=== PATIENT | male | born 1985 | race American Indian/Alaskan Native ===

== ENCOUNTER 2016-12-28 14:05 | Emergency (ER) | payer OTHER ==
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
[2016-12-28 19:03] VITALS: BP 114/75
== END 2016-12-28 18:30 | disposition home or self-care (01) ==
LOC: ED 14:05
DX: S46.811A Strain of other muscles, fascia and tendons at shoulder and upper arm level, right arm, initial encounter (principal); J45.909 Unspecified asthma, uncomplicated; V89.2XXA Person injured in unspecified motor-vehicle accident, traffic, initial encounter; Y93.89 Activity, other specified; Y99.9 Unspecified external cause status; Y92.410 Unspecified street and highway as the place of occurrence of the external cause
CPT/HCPCS: 99282

== ENCOUNTER 2019-05-15 19:42 | Emergency (ER) | payer SELFPAY ==
[2019-05-15 19:51] VITALS: BP 107/58
--- NOTE | 2019-05-15 20:31 | Emergency Department Report ---
Chief Complaint: Sore Throat Stated Complaint: SORE THROAT Time Seen by Provider: 05/15/19 20:16 - HPI History of Present Illness: 33 y/o male comes in for 3 day history of sorethroat. Patient has not taking anything. No fever. - ROS Review of Systems: sore throat. - Exam Vital Signs: Vital Signs 05/15/19 19:47 Temperature 97.5 F L Pulse Rate 71 Respiratory 18 Rate Blood Pressure 107/58 O2 Sat by Pulse 95 Oximetry Physical Exam: Axo times three. ENT: Oral mucosa moist no erythmatous or edematous no exudate. MSE screening note: Focused history and physical exam performed. Due to findings the following was ordered: Take Tylenol or Ibuprofen for pain management. ED Disposition for MSE Condition: Stable
== END 2019-05-15 20:41 | disposition home or self-care (01) ==
LOC: ED 19:42
DX: J02.9 Acute pharyngitis, unspecified (principal); Z53.21 Procedure and treatment not carried out due to patient leaving prior to being seen by health care provider